=== PATIENT | female | born 1995 | race Caucasian/White ===

== ENCOUNTER 2017-01-27 08:57 | Emergency (ER) | payer OTHER ==
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
[2017-01-27] MEDS ORDERED: HYDROcodone/Acetaminophen 5/325 mg Tablet ONE (09:47)
[2017-01-27] MEDS ORDERED: Ibuprofen 800 MG TAB ONE (09:47)
== END 2017-01-27 09:53 | disposition home or self-care (01) ==
LOC: NAV ERS 08:57
DX: S93.402A Sprain of unspecified ligament of left ankle, initial encounter (principal); W01.0XXA Fall on same level from slipping, tripping and stumbling without subsequent striking against object, initial encounter

== ENCOUNTER 2020-01-20 18:56 | Emergency (ER) | payer OTHER ==
[2020-01-20] MEDS ORDERED: Lidocaine 1% (PF) 30 ML VIAL ONE (19:12)
[2020-01-20] MEDS ORDERED: Bacitracin 1 PK ONE (19:24)
== END 2020-01-20 19:37 | disposition home or self-care (01) ==
LOC: NAV ERS 18:56
DX: S61.217A Laceration without foreign body of left little finger without damage to nail, initial encounter (principal); W26.0XXA Contact with knife, initial encounter; Y92.009 Unspecified place in unspecified non-institutional (private) residence as the place of occurrence of the external cause
CPT/HCPCS: 12001; J2001

== ENCOUNTER 2021-02-22 23:57 | Emergency (ER) | payer OTHER, SELFPAY ==
[~2021-02-22 23:57] MED LIST: Iopamidol 370 76% 100 ML VIAL ONE
[2021-02-23 00:24] LABS: Bilirubin Negative (Negative); Blood, Urine Negative (Negative); Clarity Clear (Clear); Glucose, Urine (Dipstick) Negative (Negative); Ketone, Urine Negative (Negative); Leukocyte Negative (Negative); Nitrite Negative (Negative); Protein, Urine (Dipstick) Negative (Neg-Trace)
[2021-02-23 00:28] LABS: Specific Gravity, Urine 1.033 (1.002-1.036)
[2021-02-23 00:30] LABS: Pregnancy Test - Urine (BHCG) Negative (Negative); Pregu Control Background? CLEAR/WHITE (CLR/WHITE); Pregu Control Bar Appear? YES (CONTROL BAR); Specific Gravity 1.033 (1.002-1.036)
[2021-02-23 00:32] LABS: #Basophils 0.1 thou/uL (0.0-0.2); #Eosinphils 0.2 thou/uL (0.0-0.7); #Lymphocytes 2.9 thou/uL (1.20-3.40); #Monocytes 0.8 thou/uL (0.11-0.59); #Neutrophils 10.5 thou/uL (1.40-6.50); %Basophils 0.7 % (0.0-1.0); %Eosinophils 1.4 % (0.0-10.0); %Lymphocytes 20.3 % (21.0-51.0); %Monocytes 5.4 % (0.0-10.0); %Neutrophils 72.3 % (42.0-75.0); Hemoglobin 13.1 g/dL (12.0-16.0); Mean Corpuscular HGB CONC 33.1 g/dL (32.0-36.0); Mean Corpuscular Volume 87.6 fL (78.0-98.0); Platelet Count 281 thou/uL (130-400); RBC Distribution Width 12.1 % (11.5-14.5); White Blood Cell (WBC) Count 14.5 thou/uL (4.8-10.8)
[2021-02-23 00:35] LABS: Anion Gap 13 mmol/L (10-20); BUN (Urea Nitrogen) 12 mg/dL (7.0-18.7); Calc. Creatinine Clearance 0 mL/min (70-130); Carbon Dioxide 27 mmol/L (22-29); Chloride 102 mmol/L (98-107); Glucose 84 mg/dL (70-105); Potassium 3.6 mmol/L (3.5-5.1); Sodium 138 mmol/L (136-145)
[2021-02-23 01:22] LABS: ALT (SGPT) 15 U/L (8-55); AST (SGOT) 16 U/L (5-34); Albumin 3.7 g/dL (3.5-5.0); Alkaline Phosphatase 103 U/L (40-110); Bilirubin, Total 0.4 mg/dL (0.2-1.2); Globulin 3.2 g/dL (2.4-3.5); Lipase Less than 4 U/L (8-78); Protein, Total 6.9 g/dL (6.0-8.3)
[2021-02-23] MEDS ORDERED: Ketorolac Tromethamine 30 MG/ML VIAL ONE (02:01)
== END 2021-02-23 02:14 | disposition home or self-care (01) ==
LOC: NAV ERS 23:57
DX: R10.32 Left lower quadrant pain (principal); R11.0 Nausea
CPT/HCPCS: 74177; 81003; 81025; 83690; 85025; 96374; J1885; Q9967